=== PATIENT | female | born 1995 | race Two or more races ===

== ENCOUNTER 2023-05-16 11:39 | Emergency (ER) | payer MEDICAID, OTHER ==
[~2023-05-16] VITALS: Ht 154.9 cm; Wt 77.2 kg
[~2023-05-16 11:39] MED LIST: PREN27TA7 OR
[2023-05-16 12:47] LABS: Urine Bacteria MOD /hpf (None Seen); Urine Blood Negative /uL (Negative); Urine Clarity HAZY (Clear); Urine Color Yellow (Yellow); Urine Mucus FEW (None Seen); Urine Protein, UAD TRACE (Negative); Urine Specific Gravity 1.023 (1.001-1.035); Urine Urobilinogen Normal (Negative); Urine WBC 8 /hpf (0 - 5); Urine pH 6.5 (5.0-8.0)
[2023-05-16 14:40] VITALS: BP 99/42; PULSE 75; RESP 19; TEMP 98.2; O2SAT 97
[2023-05-16] MEDS ORDERED: CEPH500C PO (15:02)
== END 2023-05-16 15:09 | disposition home or self-care (01) ==
LOC: ER 11:39
DX: O23.43 Unspecified infection of urinary tract in pregnancy, third trimester (principal); Z3A.33 33 weeks gestation of pregnancy; Z79.899 Other long term (current) drug therapy
CPT/HCPCS: 81001; 81025

== ENCOUNTER 2023-06-13 10:58 | Observation (INO) | payer MEDICAID ==
[~2023-06-13 10:58] MED LIST changes: +CEPH500C PO
[2023-06-13 11:45] LABS: Fern Testing Negative
[2023-06-13 11:48] LABS: Urine Bacteria FEW /hpf (None Seen); Urine Blood Negative /uL (Negative); Urine Clarity HAZY (Clear); Urine Color Yellow (Yellow); Urine Hyaline Cast FEW /lpf (0 - 2); Urine Protein, UAD TRACE (Negative); Urine Specific Gravity 1.021 (1.001-1.035); Urine WBC 6 /hpf (0 - 5); Urine pH 7.5 (5.0-8.0)
[2023-06-13 13:41] LABS: Vaginal Trichomonas Not Present
[2023-06-13 13:42] LABS: Vaginal Bacteria None Seen; Vaginal Clue Cells None Seen; Vaginal Epithelial Cells Rare
[2023-06-13] MEDS ORDERED: TERBUTALINE SULFATE 1 MG/ML 1ML VIAL SC SCH (13:45)
[2023-06-13] MEDS ORDERED: LACTATED RINGER'S 1,000 ML IV ONE (13:45)
[2023-06-13] MEDS ORDERED: CEPH250C PO (13:53)
== END 2023-06-13 14:15 | disposition home or self-care (01) ==
LOC: UNDOADMOB 10:58 → LDRP 10:58 → UNDODISOB 14:15
PROVIDERS: ADMIT Obstetrics & Gynecology; ATTEND Obstetrics & Gynecology
DX: O23.43 Unspecified infection of urinary tract in pregnancy, third trimester (principal); O42.913 Preterm premature rupture of membranes, unspecified as to length of time between rupture and onset of labor, third trimester; O36.8130 Decreased fetal movements, third trimester, not applicable or unspecified; O26.893 Other specified pregnancy related conditions, third trimester; R51.9 Headache, unspecified; O62.9 Abnormality of forces of labor, unspecified; Z3A.35 35 weeks gestation of pregnancy; Z87.440 Personal history of urinary (tract) infections
CPT/HCPCS: 59025; 81001; 81002; 84112; 87086; 87210; G0378; Q0114

== ENCOUNTER 2023-06-15 15:50 | Observation (INO) | payer MEDICAID ==
[~2023-06-15] VITALS: Ht 154.9 cm; Wt 72.6 kg
[~2023-06-15 15:50] MED LIST changes: +CEPH250C PO; -CEPH500C PO
[2023-06-15 17:25] LABS: Basophils # (auto) 0 10 ^3/uL (0-0.2); Eosinophils # (auto) 0.2 10 ^3/uL (0-0.8); Eosinophils % (auto) 1.9 % (0.0-7.0); Monocytes # (auto) 0.6 10 ^3/uL (0-1.3); Neutrophils # (auto) 6.8 10 ^3/uL (1.6-8.6)
[2023-06-15 17:28] LABS: Basophils % (auto) 0.3 % (0.0-2.0); Hematocrit 29.4 % (36.0-46.0); Hemoglobin 9.5 g/dL (12.2-16.2); Lymphocytes # (auto) 1.9 10 ^3/uL (0.4-5.4); Lymphocytes % (auto) 20.3 % (10.0-50.0); Mean Corpuscular Hemoglobin 25.3 pg (28.0-32.0); Mean Corpuscular Hgb Conc. 32.2 g/dL (32.0-36.0); Mean Corpuscular Volume 78.8 fL (80.0-100.0); Monocytes % (auto) 6.5 % (0.0-12.0); Red Blood Cells 3.74 10^6/uL (4.0-5.20); Red Cell Distribution Width 17.3 % (11.8-14.3); White Blood Cell 9.6 10^3/uL (4.4-10.8)
[2023-06-15 17:53] LABS: Urine Bacteria FEW /hpf (None Seen); Urine Blood 2+ /uL (Negative); Urine Clarity HAZY (Clear); Urine Color Yellow (Yellow); Urine Mucus FEW (None Seen); Urine Protein, UAD 1+ (Negative); Urine Specific Gravity 1.029 (1.001-1.035); Urine WBC 33 /hpf (0 - 5); Urine pH 6.5 (5.0-8.0)
[2023-06-15 17:53] LABS: Albumin 3.9 g/dL (3.2-4.8); Alkaline Phosphatase 125 U/L (46-116); Anion Gap 8 (5-15); Aspartate Aminotransferase < 8 U/L (13-40); Bilirubin, Total 0.8 mg/dL (0.2-1.0); Calcium 8.7 mg/dL (8.7-10.4); Carbon Dioxide 22 mmol/L (20-30); Chloride 106 mmol/L (98-107); Glucose 65 mg/dL (74-106); Potassium 3.7 mmol/L (3.5-5.1); Sodium 136 mmol/L (136-145)
[2023-06-15 17:54] LABS: Alanine Aminotransferase < 9 U/L (7-40); BUN/Creatinine Ratio 11.6 (10.0-20.0); Blood Urea Nitrogen < 5 mg/dL (9-23); Total Protein 6.7 g/dL (5.7-8.2)
[2023-06-15 18:00] LABS: INR 0.95 (0.9-1.15); Partial Thromboplastin Time 27.5 SEC (24.5-34.5)
[2023-06-15 18:02] LABS: Amphetamine Screen, Urine Neg (NEGATIVE); Barbiturate Scree,Urine Neg (NEGATIVE); Benzodiazephine Screen, Urine Neg (NEGATIVE); Cocaine Screen, Urine Neg (NEGATIVE); Opiate Scree,Urine Neg (NEGATIVE)
[2023-06-15 18:03] LABS: Cannabinoid Screen, Urine Neg (NEGATIVE); Phencyclidine Screen, Urine Neg (NEGATIVE)
[2023-06-17 06:07] LABS: Rubella Antibodies, IgG 1.18 index (Immune >0.99)
[2023-06-17 07:06] LABS: RPR Non Reactive (Non Reactive)
== END 2023-06-15 18:00 | disposition home or self-care (01) ==
LOC: LDRP 15:50 → UNDOADMOB 15:50 → LDRP 15:56 → UNDODISOB 18:00
PROVIDERS: ADMIT Obstetrics & Gynecology; ATTEND Obstetrics & Gynecology
DX: O62.9 Abnormality of forces of labor, unspecified (principal); O46.93 Antepartum hemorrhage, unspecified, third trimester; O99.891 Other specified diseases and conditions complicating pregnancy; M54.9 Dorsalgia, unspecified; Z3A.36 36 weeks gestation of pregnancy; Z79.899 Other long term (current) drug therapy
CPT/HCPCS: 36415; 59025; 76805; 80053; 80307; 81001; 81002; 85025; 85610; 85730; 86592; 86703; 86762; 86850; 86900; 86901; 87081; 87340; G0378

== ENCOUNTER 2023-06-20 08:44 | Observation (INO) | payer MEDICAID ==
[2023-06-20 09:36] LABS: Fern Testing Positive
== END 2023-06-20 10:59 | disposition home or self-care (01) ==
LOC: LDRP 08:44
PROVIDERS: ADMIT Obstetrics & Gynecology; ATTEND Obstetrics & Gynecology
DX: O60.03 Preterm labor without delivery, third trimester (principal); Z3A.36 36 weeks gestation of pregnancy; Z87.440 Personal history of urinary (tract) infections
CPT/HCPCS: 59025; 76815; 81002; 84112; 94760; G0378; Q0114

== ENCOUNTER 2023-06-20 20:15 | Observation (INO) | payer MEDICAID ==
[2023-06-20 21:22] LABS: Fern Testing Negative
== END 2023-06-20 22:12 | disposition home or self-care (01) ==
LOC: LDRP 20:15
PROVIDERS: ADMIT Obstetrics & Gynecology; ATTEND Obstetrics & Gynecology
DX: Z36.89 Encounter for other specified antenatal screening (principal); Z3A.36 36 weeks gestation of pregnancy
CPT/HCPCS: 59025; 76815; 81002; 84112; G0378; Q0114

== ENCOUNTER 2023-06-22 08:50 | Observation (INO) | payer MEDICAID | END 2023-06-22 10:15 | disposition home or self-care (01) | LOC: UNDOADMOB 08:50 → LDRP 08:50 → UNDODISOB 10:15 | PROVIDERS: ADMIT Obstetrics & Gynecology; ATTEND Obstetrics & Gynecology | DX: O62.9 Abnormality of forces of labor, unspecified (principal); Z3A.37 37 weeks gestation of pregnancy | CPT/HCPCS: 59025; 76818; 81002; 94760; G0378 ==

== ENCOUNTER 2023-06-23 15:11 | Observation (INO) | payer MEDICAID ==
[2023-06-23 16:37] LABS: Fern Testing Negative
== END 2023-06-23 17:45 | disposition home or self-care (01) ==
LOC: LDRP 15:11 → UNDOADMOB 15:11 → LDRP 15:41
PROVIDERS: ADMIT Obstetrics & Gynecology; ATTEND Obstetrics & Gynecology
DX: O99.891 Other specified diseases and conditions complicating pregnancy (principal); M54.9 Dorsalgia, unspecified; O42.92 Full-term premature rupture of membranes, unspecified as to length of time between rupture and onset of labor; Z3A.37 37 weeks gestation of pregnancy
CPT/HCPCS: 59025; 76815; 81002; 84112; G0378; Q0114

== ENCOUNTER 2023-07-06 10:40 | Observation (INO) | payer MEDICAID ==
[~2023-07-06] VITALS: Ht 154.9 cm; Wt 77.1 kg
[2023-07-06 12:08] LABS: Basophils # (auto) 0 10 ^3/uL (0-0.2); Eosinophils # (auto) 0.1 10 ^3/uL (0-0.8); Hemoglobin 9.4 g/dL (12.2-16.2); Lymphocytes # (auto) 2.3 10 ^3/uL (0.4-5.4); Lymphocytes % (auto) 23.5 % (10.0-50.0); Mean Corpuscular Volume 78.9 fL (80.0-100.0); Monocytes % (auto) 5.6 % (0.0-12.0)
[2023-07-06 12:10] LABS: Basophils % (auto) 0.2 % (0.0-2.0); Eosinophils % (auto) 1.5 % (0.0-7.0); Hematocrit 29.9 % (36.0-46.0); Mean Corpuscular Hemoglobin 24.9 pg (28.0-32.0); Mean Corpuscular Hgb Conc. 31.5 g/dL (32.0-36.0); Monocytes # (auto) 0.5 10 ^3/uL (0-1.3); Neutrophils # (auto) 6.8 10 ^3/uL (1.6-8.6); Neutrophils % (auto) 69.2 % (37.0-80.0); Red Blood Cells 3.79 10^6/uL (4.0-5.20); Red Cell Distribution Width 18.1 % (11.8-14.3); White Blood Cell 9.8 10^3/uL (4.4-10.8)
[2023-07-06 12:23] LABS: INR 0.93 (0.9-1.15); Partial Thromboplastin Time 25.9 SEC (24.5-34.5); Prothrombin Time 9.8 sec (9.3-11.8)
[2023-07-06 12:44] LABS: Urine Bacteria FEW /hpf (None Seen); Urine Blood Negative /uL (Negative); Urine Clarity HAZY (Clear); Urine Color Yellow (Yellow); Urine Hyaline Cast FEW /lpf (0 - 2); Urine Mucus FEW (None Seen); Urine Protein, UAD TRACE (Negative); Urine Specific Gravity 1.018 (1.001-1.035); Urine Urobilinogen Normal (Negative); Urine WBC 2 /hpf (0 - 5); Urine pH 6.5 (5.0-8.0)
[2023-07-06 13:05] LABS: Amphetamine Screen, Urine Neg (NEGATIVE)
[2023-07-06 13:07] LABS: Albumin 3.8 g/dL (3.2-4.8); Alkaline Phosphatase 111 U/L (46-116); Anion Gap 6 (5-15); Aspartate Aminotransferase 9 U/L (13-40); Calcium 8.6 mg/dL (8.5-10.1); Carbon Dioxide 23 mmol/L (20-30); Chloride 107 mmol/L (98-107); Glucose 72 mg/dL (74-106); Potassium 3.9 mmol/L (3.5-5.1); Sodium 136 mmol/L (136-145)
[2023-07-06 13:07] LABS: Barbiturate Scree,Urine Neg (NEGATIVE); Benzodiazephine Screen, Urine Neg (NEGATIVE); Cannabinoid Screen, Urine Neg (NEGATIVE); Cocaine Screen, Urine Neg (NEGATIVE); Opiate Scree,Urine Neg (NEGATIVE); Phencyclidine Screen, Urine Neg (NEGATIVE)
[2023-07-06 13:08] LABS: Bilirubin, Total 0.6 mg/dL (0.2-1.0); Total Protein 6.3 g/dL (5.7-8.2)
[2023-07-06 13:11] LABS: Alanine Aminotransferase < 9 U/L (7-40); BUN/Creatinine Ratio 12.2 (10.0-20.0); Blood Urea Nitrogen < 5 mg/dL (9-23)
[2023-07-07 08:06] LABS: RPR Non Reactive (Non Reactive); Rubella Antibodies, IgG 1.18 index (Immune >0.99)
[2023-07-10 20:06] LABS: Treponema pallidum Ab (FTA-Ab) Non Reactive (Non Reactive)
== END 2023-07-06 11:56 | disposition home or self-care (01) ==
LOC: LDRP 10:40 → UNDOADMOB 10:40 → LDRP 11:07 → UNDODISOB 11:56
PROVIDERS: ADMIT Obstetrics & Gynecology; ATTEND Obstetrics & Gynecology
DX: O62.9 Abnormality of forces of labor, unspecified (principal); Z3A.39 39 weeks gestation of pregnancy; Z79.899 Other long term (current) drug therapy
CPT/HCPCS: 36415; 59025; 80053; 80307; 81001; 81002; 85025; 85610; 85730; 86592; 86703; 86762; 87081; 87340; 94760; G0378

== ENCOUNTER 2023-07-09 14:00 | Observation (INO) | payer MEDICAID ==
[2023-07-09 15:21] LABS: Fern Testing Negative
== END 2023-07-09 17:35 | disposition home or self-care (01) ==
LOC: LDRP 14:00
PROVIDERS: ADMIT Obstetrics & Gynecology; ATTEND Obstetrics & Gynecology
DX: O62.9 Abnormality of forces of labor, unspecified (principal); O46.93 Antepartum hemorrhage, unspecified, third trimester; O99.513 Diseases of the respiratory system complicating pregnancy, third trimester; O26.893 Other specified pregnancy related conditions, third trimester; R10.30 Lower abdominal pain, unspecified; J45.909 Unspecified asthma, uncomplicated; N89.8 Other specified noninflammatory disorders of vagina; Z3A.39 39 weeks gestation of pregnancy
CPT/HCPCS: 59025; 76818; 81002; 84112; 94760; G0378; Q0114

== ENCOUNTER 2023-07-11 16:30 | Inpatient (IN) | payer MEDICAID ==
[~2023-07-11] VITALS: Ht 154.9 cm; Wt 77.1 kg
[2023-07-11 17:39] LABS: Urine Bacteria FEW /hpf (None Seen); Urine Blood Negative /uL (Negative); Urine Clarity Clear (Clear); Urine Color Colorless (Yellow); Urine Protein, UAD Negative (Negative); Urine Specific Gravity 1.016 (1.001-1.035); Urine Urobilinogen Normal (Negative); Urine WBC 1 /hpf (0 - 5)
[2023-07-11 17:48] LABS: Fern Testing Negative
[2023-07-11] MEDS ORDERED: miSOPROStol 50 MCG per PRE-CUT 1/2 TAB PO PRN (18:15)
[2023-07-11] MEDS ORDERED: PROMETHAZINE HCL 25 MG/ML 1ML IV PRN (18:15)
[2023-07-11] MEDS ORDERED: DERMOPLAST 60ML BOTTLE TOP PRN (18:15)
[2023-07-11] MEDS ORDERED: LACT. RINGERS/OXYTOCIN 20UNITS 500 ML IV ONE ×2 (18:15→18:45)
[2023-07-11] MEDS ORDERED: PHISODERM TOP SOLN 240ML BTL TOP PRN (18:15)
[2023-07-11] MEDS ORDERED: LIDOCAINE 2%HCL (LOCAL ANESTH.) INJ 20ML MDV IJ PRN (18:15)
[2023-07-11] MEDS ORDERED: WITCH HAZEL-GLYCERIN PAD TOP PRN (18:15)
[2023-07-11] MEDS: LACTATED RINGER'S 1,000 ML IV SCH ×2 (19:15→21:19)
[2023-07-11 19:16] LABS: Basophils # (auto) 0 10 ^3/uL (0-0.2); Basophils % (auto) 0.2 % (0.0-2.0); Eosinophils # (auto) 0.1 10 ^3/uL (0-0.8); Eosinophils % (auto) 1.3 % (0.0-7.0); Hematocrit 27.6 % (36.0-46.0); Hemoglobin 8.8 g/dL (12.2-16.2); Lymphocytes # (auto) 2.7 10 ^3/uL (0.4-5.4); Lymphocytes % (auto) 27.4 % (10.0-50.0); Mean Corpuscular Hemoglobin 24.9 pg (28.0-32.0); Monocytes # (auto) 0.7 10 ^3/uL (0-1.3); Monocytes % (auto) 6.8 % (0.0-12.0); Neutrophils # (auto) 6.3 10 ^3/uL (1.6-8.6); Neutrophils % (auto) 64.3 % (37.0-80.0); Nucleated Red Blood Cells % 0.1 %; Red Blood Cells 3.54 10^6/uL (4.0-5.20); Red Cell Distribution Width 18.1 % (11.8-14.3); White Blood Cell 9.8 10^3/uL (4.4-10.8)
[2023-07-11 19:19] LABS: Alkaline Phosphatase 111 U/L (46-116); Anion Gap 8 (5-15); Aspartate Aminotransferase 10 U/L (13-40); Blood Urea Nitrogen 7 mg/dL (9-23); Calcium 8.9 mg/dL (8.5-10.1); Carbon Dioxide 24 mmol/L (20-30); Chloride 104 mmol/L (98-107); Glucose 87 mg/dL (74-106); Potassium 3.9 mmol/L (3.5-5.1); Sodium 136 mmol/L (136-145)
[2023-07-11 19:20] LABS: Albumin 3.7 g/dL (3.2-4.8); Bilirubin, Total 0.5 mg/dL (0.2-1.0); Total Protein 6.1 g/dL (5.7-8.2)
[2023-07-11 19:25] LABS: Alanine Aminotransferase < 9 U/L (7-40)
[2023-07-11 19:31] LABS: INR 0.9 (0.9-1.15); Partial Thromboplastin Time 25.4 SEC (24.5-34.5); Prothrombin Time 9.5 sec (9.3-11.8)
[2023-07-11] MEDS ORDERED: ONDANSETRON HCL 4 MG/2 ML VIAL IV PRN (19:45)
[2023-07-11] MEDS ORDERED: ACETAMINOPHEN 325 MG TAB PO PRN (19:45)
[2023-07-11] MEDS ORDERED: CARBOPROST TROMETHAMINE 250 MCG/1ML VIAL IM PRN (19:45)
[2023-07-11] MEDS ORDERED: diphenhdrAMINE HCL 50 MG/1 ML VL IV PRN (19:45)
[2023-07-11] MEDS ORDERED: MINERAL OIL TOPICAL 10ml TOP PRN (19:45)
[2023-07-11] MEDS ORDERED: miSOPROStol 100 mcg TAB SL PRN (19:45)
[2023-07-11] MEDS ORDERED: METHYLERGONOVINE MALEATE 0.2 MG/ML AMP IM PRN ×2 (19:45→20:15)
[2023-07-11] MEDS ORDERED: PROMETHAZINE HCL 25 MG/ML 1ML IM PRN (19:45)
[2023-07-11] MEDS ORDERED: TRANEXAMIC ACID 1,000 MG in SODIUM CHL 0.9% 100 ML IV PRN (19:45)
[2023-07-11] MEDS ORDERED: fentaNYL CITRATE 100 MCG/2 ML VL IV PRN (19:45)
[2023-07-11] MEDS ORDERED: LACTATED RINGER'S 1,000 ML IV ONE (20:00)
[2023-07-11] MEDS ORDERED: ROPIVACAINE HCL 200 ML EPI SCH (20:00)
[2023-07-11] MEDS ORDERED: NALOXONE HCL 0.4 MG/ML VIAL IV ONE (20:00)
[2023-07-11] MEDS ORDERED: ePHEDrine SULFATE 50 MG/ML AMP IV ONE (20:00)
[2023-07-11] MEDS ORDERED: SODIUM CHLORIDE 0.9% 500 ML IV PRN (20:00)
[2023-07-11] MEDS ORDERED: LIDOCAINE HCL 2 %PF INJ 10ML AMP IJ ONE (20:00)
[2023-07-11] MEDS ORDERED: fentaNYL CITRATE 100 MCG/2 ML VL IV ONE (20:00)
[2023-07-11] MEDS ORDERED: TERBUTALINE SULFATE 1 MG/ML 1ML VIAL SC PRN (20:15)
[2023-07-11] MEDS ORDERED: ROPIVACAINE HCL 100 ML ONE (20:16)
[2023-07-11] MEDS ORDERED: LACT. RINGERS/OXYTOCIN 20UNITS 1,000 ML IV SCH (20:30)
[2023-07-11] MEDS ORDERED: miSOPROStol 100 mcg TAB PR PRN (21:30)
[2023-07-11 21:48] LABS: Amphetamine Screen, Urine Neg (NEGATIVE); Barbiturate Scree,Urine Neg (NEGATIVE); Benzodiazephine Screen, Urine Neg (NEGATIVE); Cannabinoid Screen, Urine Neg (NEGATIVE); Cocaine Screen, Urine Neg (NEGATIVE); Opiate Scree,Urine Neg (NEGATIVE); Phencyclidine Screen, Urine Neg (NEGATIVE)
[2023-07-11] MEDS: fentaNYL 400mCg/200ml W ROPIVA 200 ML EPI SCH (22:35)
[2023-07-12] VITALS (12 sets, daily range): BP systolic 85–116; BP diastolic 48–61; PULSE 67–99; RESP 15–20; TEMP 98–98.9; O2SAT 95–99
[2023-07-12] MEDS ORDERED: ROPIVACAINE HCL 100 ML ONE (00:09)
[2023-07-12] MEDS ORDERED: MINERAL OIL TOPICAL 10ml TOP ONE (01:06)
[2023-07-12] MEDS ORDERED: ACETAMINOPHEN 500 MG TAB PO PRN (01:15)
[2023-07-12] MEDS ORDERED: OXYTOCIN 10UNIT/ML 1ML VIAL ONE (01:44)
[2023-07-12] MEDS ORDERED: OXYTOCIN 10UNIT/ML 1ML VIAL IM ONE (01:45)
[2023-07-12] MEDS ORDERED: ceFAZolin 2 GM/D5W100ml 100 ML IV ONE (01:45)
[2023-07-12] MEDS ORDERED: LACT. RINGERS/OXYTOCIN 20UNITS 1,000 ML IV ONE ×2 (02:00→02:30)
[2023-07-12 02:26] LABS: Basophils # (auto) 0 10 ^3/uL (0-0.2); Basophils % (auto) 0.4 % (0.0-2.0); Eosinophils # (auto) 0.1 10 ^3/uL (0-0.8); Hemoglobin 8.5 g/dL (12.2-16.2); Lymphocytes # (auto) 2.2 10 ^3/uL (0.4-5.4); Mean Corpuscular Hemoglobin 25.2 pg (28.0-32.0); Monocytes # (auto) 0.6 10 ^3/uL (0-1.3)
[2023-07-12] MEDS: DIPHENOXYLATE W/ATROPINE 2.5 MG TAB PO SCH ×2 (02:26→18:00)
[2023-07-12 02:28] LABS: Eosinophils % (auto) 1.1 % (0.0-7.0); Hematocrit 26.7 % (36.0-46.0); Lymphocytes % (auto) 19.5 % (10.0-50.0); Mean Corpuscular Hgb Conc. 31.8 g/dL (32.0-36.0); Monocytes % (auto) 5.5 % (0.0-12.0); Neutrophils # (auto) 8.2 10 ^3/uL (1.6-8.6); Neutrophils % (auto) 73.5 % (37.0-80.0); Red Blood Cells 3.39 10^6/uL (4.0-5.20); White Blood Cell 11.1 10^3/uL (4.4-10.8)
[2023-07-12 02:35] LABS: INR 0.93 (0.9-1.15); Prothrombin Time 9.8 sec (9.3-11.8)
[2023-07-12] MEDS: fentaNYL 400mCg/200ml W ROPIVA 200 ML EPI SCH (02:41)
[2023-07-12] MEDS: IBUPROFEN 600 MG TAB PO PRN ×3 (02:59→15:51)
[2023-07-12] MEDS ORDERED: TRANEXAMIC ACID 1,000 MG in SODIUM CHL 0.9% 100 ML IV ONE (03:00)
[2023-07-12 11:16] LABS: Basophils # (auto) 0 10 ^3/uL (0-0.2); Eosinophils # (auto) 0 10 ^3/uL (0-0.8); Monocytes # (auto) 0.6 10 ^3/uL (0-1.3); Red Cell Distribution Width 17.8 % (11.8-14.3)
[2023-07-12 11:18] LABS: Basophils % (auto) 0.1 % (0.0-2.0); Eosinophils % (auto) 0.2 % (0.0-7.0); Hematocrit 20.7 % (36.0-46.0); Lymphocytes # (auto) 2.1 10 ^3/uL (0.4-5.4); Lymphocytes % (auto) 16.1 % (10.0-50.0); Mean Corpuscular Hemoglobin 25.3 pg (28.0-32.0); Mean Corpuscular Hgb Conc. 32.2 g/dL (32.0-36.0); Mean Corpuscular Volume 78.4 fL (80.0-100.0); Monocytes % (auto) 4.4 % (0.0-12.0); Neutrophils # (auto) 10.2 10 ^3/uL (1.6-8.6); Neutrophils % (auto) 79.2 % (37.0-80.0); Red Blood Cells 2.64 10^6/uL (4.0-5.20); White Blood Cell 12.9 10^3/uL (4.4-10.8)
[2023-07-12 11:21] LABS: Hemoglobin 6.7 g/dL (12.2-16.2)
[2023-07-12] MEDS: ACETAMINOPHEN 325 MG TAB PO PRN ×2 (13:30→19:29)
[2023-07-12 17:42] LABS: Basophils # (auto) 0 10 ^3/uL (0-0.2); Basophils % (auto) 0.2 % (0.0-2.0); Eosinophils # (auto) 0.1 10 ^3/uL (0-0.8); Eosinophils % (auto) 0.7 % (0.0-7.0); Hemoglobin 8.2 g/dL (12.2-16.2); Lymphocytes # (auto) 2.7 10 ^3/uL (0.4-5.4); Monocytes # (auto) 0.9 10 ^3/uL (0-1.3)
[2023-07-12 17:43] LABS: Hematocrit 25.6 % (36.0-46.0); Mean Corpuscular Hemoglobin 25.6 pg (28.0-32.0); Mean Corpuscular Hgb Conc. 32.2 g/dL (32.0-36.0); Mean Corpuscular Volume 79.6 fL (80.0-100.0); Monocytes % (auto) 6.9 % (0.0-12.0); Neutrophils # (auto) 9.1 10 ^3/uL (1.6-8.6); Neutrophils % (auto) 71.2 % (37.0-80.0); Red Blood Cells 3.21 10^6/uL (4.0-5.20); Red Cell Distribution Width 18.1 % (11.8-14.3); White Blood Cell 12.8 10^3/uL (4.4-10.8)
[2023-07-12 18:51] LABS: INR 0.93 (0.9-1.15); Partial Thromboplastin Time 26.8 SEC (24.5-34.5); Prothrombin Time 9.8 sec (9.3-11.8)
[2023-07-12 18:57] LABS: Albumin 3.2 g/dL (3.2-4.8); Alkaline Phosphatase 115 U/L (46-116); Anion Gap 9 (5-15); Aspartate Aminotransferase 12 U/L (13-40); Bilirubin, Total 0.5 mg/dL (0.2-1.0); Calcium 7.8 mg/dL (8.7-10.4); Carbon Dioxide 22 mmol/L (20-30); Chloride 107 mmol/L (98-107); Glucose 139 mg/dL (74-106); Potassium 3.3 mmol/L (3.5-5.1); Sodium 138 mmol/L (136-145); Total Protein 5.4 g/dL (5.7-8.2)
[2023-07-12 19:00] LABS: Alanine Aminotransferase < 9 U/L (7-40); BUN/Creatinine Ratio 9.3 (10.0-20.0); Blood Urea Nitrogen < 5 mg/dL (9-23)
[2023-07-12] MEDS ORDERED: ACET-1882 PO (19:05)
[2023-07-12] MEDS ORDERED: FERR30CA PO (19:05)
[2023-07-12] MEDS ORDERED: PREN27TA7 PO (19:05)
[2023-07-12] MEDS ORDERED: IBU600T PO (19:05)
[2023-07-12] MEDS ORDERED: DOCUSATE SOD 100 MG CAP PO SCH (22:00)
[2023-07-13] MEDS: IBUPROFEN 600 MG TAB PO PRN ×2 (02:40→10:51)
[2023-07-13 03:03] VITALS: BP 100/59; PULSE 64; RESP 18; TEMP 97.7; O2SAT 97
[2023-07-13] MEDS: DIPHENOXYLATE W/ATROPINE 2.5 MG TAB PO SCH ×2 (06:00)
[2023-07-13 06:43] VITALS: BP 96/54; PULSE 59; RESP 18; TEMP 97.9; O2SAT 100
[2023-07-13 10:50] VITALS: BP 92/48; PULSE 72; RESP 18; TEMP 98.3; O2SAT 99
[2023-07-13 13:07] LABS: RPR Non Reactive (Non Reactive)
[2023-07-14 19:06] LABS: Treponema pallidum Ab (FTA-Ab) Non Reactive (Non Reactive)
== END 2023-07-13 13:35 | disposition home or self-care (01) | DRG 560 ==
LOC: LDRP 16:30 → OBSVTOIN 17:56
PROVIDERS: ADMIT Obstetrics & Gynecology; ATTEND Obstetrics & Gynecology
PROC: 10E0XZZ Delivery of Products of Conception, External Approach (ICD-10-PCS; principal; 2023-07-12)
PROC: 30233N1 Transfusion of Nonautologous Red Blood Cells into Peripheral Vein, Percutaneous Approach (ICD-10-PCS; 2023-07-12)
PROC: 3E0R3BZ Introduction of Anesthetic Agent into Spinal Canal, Percutaneous Approach (ICD-10-PCS; 2023-07-12)
PROC: 00HU33Z Insertion of Infusion Device into Spinal Canal, Percutaneous Approach (ICD-10-PCS; 2023-07-12)
DX: O48.0 Post-term pregnancy (principal); Z37.0 Single live birth; O72.2 Delayed and secondary postpartum hemorrhage; J45.909 Unspecified asthma, uncomplicated; O99.52 Diseases of the respiratory system complicating childbirth; Z3A.40 40 weeks gestation of pregnancy
CPT/HCPCS: 36415; 36430; 59025; 59409; 62282; 80053; 80307; 81001; 81002; 84112; 85025; 85610; 85730; 86592; 86850; 86900; 86901; 86920; 93005; 94760; 96360; 96361; 96365; 96366; 96372; 96374; G0378; J2405; J2590

== ENCOUNTER 2023-09-28 23:35 | Emergency (ER) | payer MEDICAID ==
[~2023-09-28] VITALS: Ht 154.9 cm; Wt 100.0 kg
[~2023-09-28 23:35] MED LIST changes: +ACET-1882 PO; -CEPH250C PO; +FERR30CA PO; +IBU600T PO; -PREN27TA7 OR; +PREN27TA7 PO
[2023-09-29] VITALS: BP 92/76; PULSE 80; RESP 18; O2SAT 96
[2023-09-29] MEDS ORDERED: MAALOX PLUS or MAALOX 30 ML PO ONE (00:45)
[2023-09-29] MEDS ORDERED: LIDOCAINE VISCOUS 2% 15ML UD MT ONE (00:45)
[2023-09-29] MEDS ORDERED: ONDANSETRON ODT 4 MG TAB PO ONE (00:45)
[2023-09-29 01:29] LABS: Urine Bacteria NONE SEEN /hpf (None Seen); Urine Blood Negative /uL (Negative); Urine Clarity Clear (Clear); Urine Color Yellow (Yellow); Urine Hyaline Cast FEW /lpf (0 - 2); Urine Mucus FEW (None Seen); Urine Protein, UAD TRACE (Negative); Urine Specific Gravity 1.031 (1.001-1.035); Urine WBC 9 /hpf (0 - 5); Urine pH 6.5 (5.0-8.0)
[2023-09-29] MEDS ORDERED: NITR-87 PO (02:22)
[2023-09-29] MEDS ORDERED: ZOFR4T PO (02:22)
[2023-09-29] MEDS ORDERED: PANT40TA2 PO (02:22)
== END 2023-09-29 04:36 | disposition home or self-care (01) ==
LOC: ER 23:35
DX: K29.70 Gastritis, unspecified, without bleeding (principal); N39.0 Urinary tract infection, site not specified; K21.9 Gastro-esophageal reflux disease without esophagitis; Z79.1 Long term (current) use of non-steroidal anti-inflammatories (NSAID); Z79.899 Other long term (current) drug therapy
CPT/HCPCS: 81001; 99284; Q0162